=== PATIENT | female | born 1955 | race African-American/Black ===

== ENCOUNTER 2019-07-21 05:22 | Day surgery (SDC) | payer MEDICARE ==
[2019-07-14 09:28] LABS: ABSOLUTE EOSINOPHILS # (AUTO) 0.1 10^3/uL (0.0-0.6); ABSOLUTE LYMPHOCYTES (AUTO) 2.2 10^3/uL (0.5-4.7); ABSOLUTE MONOCYTES (AUTO) 0.6 10^3/uL (0.1-1.4); ABSOLUTE NEUT (AUTO) 5.1 10^3/uL (1.7-8.2); BASOPHILS % (AUTO) 0.6 % (0-2); EOSINOPHILS % (AUTO) 1.7 % (0-6); HEMATOCRIT 36.6 % (36.0-47.0); HEMOGLOBIN 12.1 g/dL (12.0-15.5); LYMPHOCYTES % (AUTO) 27.3 % (13-45); MEAN CORPUSCULAR HEMOGLOBIN 28.5 pg (27.0-33.4); MEAN CORPUSCULAR HGB CONC 33.1 g/dL (32.0-36.0); MEAN CORPUSCULAR VOLUME 86 fl (80-97); MONOCYTES % (AUTO) 7.1 % (3-13); PLATELET COUNT 325 10^3/uL (150-450); RED BLOOD COUNT 4.26 10^6/uL (3.72-5.28); RED CELL DISTRIBUTION WIDTH 14.2 % (11.5-14.0); SEGMENTED NEUTROPHILS % (AUTO) 63.3 % (42-78); TOTAL CELLS COUNTED % (AUTO) 100 %
[2019-07-14 09:56] LABS: ANION GAP 10 (5-19); BLOOD UREA NITROGEN 11 mg/dL (7-20); CALCIUM 9.4 mg/dL (8.4-10.2); CARBON DIOXIDE 27 mmol/L (22-30); CHLORIDE 103 mmol/L (98-107); GLUCOSE 119 mg/dL (75-110); POTASSIUM 3.6 mmol/L (3.6-5.0)
--- NOTE | 2019-07-14 14:06 | RADIOLOGY REPORT (SQ) ---
EXAM DESCRIPTION: CHEST PA/LATERAL COMPLETED DATE/TIME: 07/14/2019 9:22 am REASON FOR STUDY: PRE-OP COMPARISON: None. EXAM PARAMETERS: NUMBER OF VIEWS: two views TECHNIQUE: Digital Frontal and Lateral radiographic views of the chest acquired. RADIATION DOSE: NA LIMITATIONS: none FINDINGS: LUNGS AND PLEURA: No opacities, masses or pneumothorax. No pleural effusion. MEDIASTINUM AND HILAR STRUCTURES: No masses or contour abnormalities. HEART AND VASCULAR STRUCTURES: Heart normal size. No evidence for failure. BONES: No acute findings. HARDWARE: None in the chest. OTHER: No other significant finding. IMPRESSION: NO SIGNIFICANT RADIOGRAPHIC FINDING IN THE CHEST. TECHNICAL DOCUMENTATION: JOB ID: [id number] [employer]- All Rights Reserved Reading location - IP/workstation name: [email or web address]
--- NOTE | 2019-07-14 18:32 | EKG REPORT ---
SEVERITY:- ABNORMAL ECG - SINUS RHYTHM LVH WITH SECONDARY REPOLARIZATION ABNORMALITY : Confirmed by: Clementine Cline MD 14-Jul-2019 18:32:15
[~2019-07-21 05:22] MED LIST: CEFAZOLIN SODIUM 2 GM in DEXTROSE 5%-WATER 100 ML IV PRN; LACTATED RINGERS 1000 ML IV PRN; LIDOCAINE 0.5% INJ-PF (5 MG/ML) 50 ML SDV SUBCUT PRN
[2019-07-21 06:20] VITALS: BP 115/64
[2019-07-21] MEDS ORDERED: HYDROMORPHONE HCL INJ/PF 2 MG/ML AMPULE ONE (06:47)
[2019-07-21] MEDS ORDERED: ONDANSETRON HCL INJ/PF 4 MG/2 ML SDV ONE (06:47)
[2019-07-21] MEDS ORDERED: KETOROLAC TROMETHAMINE 60 MG/2 ML SDV ONE (06:47)
[2019-07-21] MEDS ORDERED: FENTANYL CITRATE INJ/PF 250 MCG/5 ML AMPULE ONE (06:47)
[2019-07-21] MEDS ORDERED: LIDOCAINE 2% INJ-PF (20 MG/ML) 10 ML AMPUL ONE (06:47)
[2019-07-21] MEDS ORDERED: DEXAMETHASONE SOD PHOSPHATE INJ 4 MG/1 ML VIAL ONE (06:48)
[2019-07-21] MEDS ORDERED: MIDAZOLAM 2 MG/2 ML INJ ONE ×2 (06:48→06:50)
[2019-07-21] MEDS ORDERED: PROPOFOL INJ 200 MG/20 ML VIAL IV ONE (06:48)
[2019-07-21] MEDS ORDERED: FENTANYL CITRATE INJ/PF 100 MCG/2 ML AMPUL ONE (06:52)
[2019-07-21] MEDS ORDERED: FENTANYL CITRATE INJ/PF 100 MCG/2 ML AMPUL IV ONE (07:00)
[2019-07-21] MEDS ORDERED: MIDAZOLAM 2 MG/2 ML INJ IV ONE (07:00)
[2019-07-21] MEDS ORDERED: EPHEDRINE SULFATE INJ 50 MG/1 ML AMPULE ONE (07:05)
== END 2019-07-21 08:45 | disposition home or self-care (01) ==
LOC: OROUT 05:22
PROVIDERS: ATTEND Orthopaedic Surgery
DX: M51.36 Other intervertebral disc degeneration, lumbar region (principal); Z79.899 Other long term (current) drug therapy; Z01.810 Encounter for preprocedural cardiovascular examination; Z01.811 Encounter for preprocedural respiratory examination; Z01.812 Encounter for preprocedural laboratory examination; R94.31 Abnormal electrocardiogram [ECG] [EKG]
CPT/HCPCS: 93005; 86900; 86901; 36415 ×2; 86850; 84132; 85025; 80048; 87070; 71046; 93010; J2250; J0690; J3010 ×2; J1170; J7060; J3490; J1100; J1885; J2405; J2704

== ENCOUNTER 2019-11-03 11:18 | Day surgery (SDC) | payer MEDICARE ==
[2019-10-29 10:42] LABS: ABSOLUTE BASOPHILS # (AUTO) 0.1 10^3/uL (0.0-0.2); ABSOLUTE EOSINOPHILS # (AUTO) 0.5 10^3/uL (0.0-0.6); ABSOLUTE LYMPHOCYTES (AUTO) 1.5 10^3/uL (0.5-4.7); ABSOLUTE MONOCYTES (AUTO) 0.6 10^3/uL (0.1-1.4); ABSOLUTE NEUT (AUTO) 6.1 10^3/uL (1.7-8.2); BASOPHILS % (AUTO) 0.8 % (0-2); EOSINOPHILS % (AUTO) 5.8 % (0-6); HEMATOCRIT 36.8 % (36.0-47.0); HEMOGLOBIN 12.2 g/dL (12.0-15.5); MEAN CORPUSCULAR HEMOGLOBIN 28.8 pg (27.0-33.4); MEAN CORPUSCULAR HGB CONC 33.2 g/dL (32.0-36.0); MEAN CORPUSCULAR VOLUME 87 fl (80-97); MONOCYTES % (AUTO) 6.7 % (3-13); PLATELET COUNT 289 10^3/uL (150-450); RED BLOOD COUNT 4.24 10^6/uL (3.72-5.28); RED CELL DISTRIBUTION WIDTH 14.3 % (11.5-14.0); SEGMENTED NEUTROPHILS % (AUTO) 69.7 % (42-78); TOTAL CELLS COUNTED % (AUTO) 100 %; WHITE BLOOD COUNT 8.7 10^3/uL (4.0-10.5)
--- NOTE | 2019-10-29 11:12 | RADIOLOGY REPORT (SQ) ---
EXAM DESCRIPTION: CHEST PA/LATERAL IMAGES COMPLETED DATE/TIME: 10/29/2019 10:35 am REASON FOR STUDY: PRE-OP COMPARISON: 08/25/2019 EXAM PARAMETERS: NUMBER OF VIEWS: two views TECHNIQUE: Digital Frontal and Lateral radiographic views of the chest acquired. RADIATION DOSE: NA LIMITATIONS: none FINDINGS: LUNGS AND PLEURA: No opacities, masses or pneumothorax. No pleural effusion. MEDIASTINUM AND HILAR STRUCTURES: No masses or contour abnormalities. HEART AND VASCULAR STRUCTURES: Heart normal size. No evidence for failure. BONES: No acute findings. HARDWARE: None in the chest. OTHER: No other significant finding. IMPRESSION: NO SIGNIFICANT RADIOGRAPHIC FINDING IN THE CHEST. TECHNICAL DOCUMENTATION: JOB ID: [id number] 2010 [employer]- All Rights Reserved Reading location - IP/workstation name: [email or web address]
[2019-10-29 11:14] LABS: ANION GAP 11 (5-19); BLOOD UREA NITROGEN 14 mg/dL (7-20); CARBON DIOXIDE 26 mmol/L (22-30); CHLORIDE 102 mmol/L (98-107); GLUCOSE 136 mg/dL (75-110); POTASSIUM 4.7 mmol/L (3.6-5.0)
--- NOTE | 2019-10-29 18:48 | EKG REPORT ---
SEVERITY:- ABNORMAL ECG - SINUS RHYTHM ABNORMAL T, CONSIDER ISCHEMIA, LATERAL LEADS : Confirmed by: Clementine Cline MD 29-Oct-2019 18:47:47
[~2019-11-03 11:18] MED LIST changes: +ACETAMINOPHEN 325 MG TABLET PO PRN; +BACITRACIN INJ 50,000 UNIT VIAL ONE; +BUPIVACAINE HCL 0.5 % INJ/PF 30 ML SDV ONE; +BUPIVACAINE INJ/PF LIPOSOME/PF 266 MG/20 ML SDV ONE; +CEFAZOLIN 1 GM/D5W RTU 0 GM/0 ML RTUPB IV ONE; +CEFAZOLIN INJ 1 GM VIAL ONE; +DEXAMETHASONE SOD PHOSPHATE INJ 4 MG/1 ML VIAL ONE; +DIAZEPAM 5 MG TABLET PO PRN; +DIPHENHYDRAMINE HCL 25 MG CAPSULE PO PRN; +DIPHENHYDRAMINE HCL 50 MG/ML VIAL IV PRN; +FENTANYL CITRATE INJ/PF 100 MCG/2 ML AMPUL IV PRN; +FENTANYL CITRATE INJ/PF 100 MCG/2 ML AMPUL ONE; +HEPARIN SOD (PORCINE) 1,000 UNIT/ML 10 ML VIAL ONE; +HYDROMORPHONE HCL INJ/PF 2 MG/ML AMPULE ONE; +KETOROLAC TROMETHAMINE 60 MG/2 ML SDV ONE; +LIDOCAINE 2% INJ-PF (20 MG/ML) 10 ML AMPUL ONE; +MEPERIDINE HCL/PF INJ 25 MG/1 ML DISP.SYRIN IV PRN; +METHOCARBAMOL INJ/PF 1000 MG/10 ML SDV ONE; +MIDAZOLAM 2 MG/2 ML INJ ONE; +MINERAL OIL (STERILE) 10 ML VIAL ONE; +MORPHINE SULFATE 10 MG/ML INJ IM PRN; +MORPHINE SULFATE 10 MG/ML INJ IV PRN; +ONDANSETRON HCL INJ/PF 4 MG/2 ML SDV IV PRN; +ONDANSETRON HCL INJ/PF 4 MG/2 ML SDV ONE; +OXYCODONE-ACETAMINOPHEN 5-325 MG TABLET PO PRN; +PHENYLEPHRINE HCL INJ/PF 10 MG/1 ML SDV ONE; +PROMETHAZINE HCL 25 MG TABLET PO PRN; +PROMETHAZINE HCL INJ 25 MG/1 ML VIAL IV PRN; +PROPOFOL 1,000 MG/100 ML INFUS..BTL IV ONE; +PROPOFOL INJ 200 MG/20 ML VIAL IV ONE
--- NOTE | 2019-11-03 11:30 | Operative Report ---
Operative Report DATE OF SURGERY: 11/03/19 Operative Report: Patient is brought into the room placed under general anesthesia received 2 g of Ancef within 1 hour of cut time was placed on the Roosevelt table medial epicondyles and axillary areas are well-padded. Neuro monitoring leads for SSEP and cranial motor testing are placed on the patient as well as a Ortega catheter is placed preoperatively. After appropriate surgical timeout the SofGenie robot is utilized and on the right posterior superior iliac spine a pin is placed and attached to the robot. After obtaining registration imaging in the AP and oblique position and verification 6.5 x 45 mm screws at L4 and 5.5 x 50 mm screws at L5 as well as a 6.5 x 40 mm screws at S1 are inserted using portal incisions on the right and the left at L4 and L5 and S1 bilaterally. Left iliac crest is aspirated at 2 different sites total of 50 cc of bone marrow aspirate are obtained and concentrated to be used an interbody spacer with the allograft. Attention was then paid to the left sided anterior lateral portal for entry into the disc space which is carried out under navigation guidance upon verification also with x-rays and then stimulation thresholds greater than 22mA. Upon inserting the portal into the disc space at L4-5 and L5-S1 fluoroscopy was used to verify the position as it did also to verify the screws position. Endplate tiffanie and curettes and brushes are used to carry out a complete discectomy then the verify balloon is inserted to verify good contact with the endplates. Incite cortical fibers/demineralized bone matrix with bone marrow aspirate concentrate are placed anterior in the disc space then the appropriate size mesh spacer is introduced into the interbody. The mesh spacer is soaked in bone marrow aspirate concentrate and is filled with bone graft showing good correction and good containment within the disc space at L4-5 and L5-S1. Upon neuro monitoring testing and cranial motor testing found to be stable then the portal is removed anterior laterally and attention is then paid to the placement of the rods upon using the caliper device the appropriate length rods were determined to be 40 mm rods on the right and on the left those are passed down and locked into position and final tightened. Then the tabs are removed and the portals are irrigated with copious amounts of irrigation and the posterior superior iliac spine pin connected to the robot is removed as well and the deep and superficial tissues were infiltrated with 1.3% Exparel 20 cc mixed with 20 cc of 0.5% bupivacaine plain. The portals are closed using 2-0 Vicryl and then Dermabond and Steri-Strips then 4 x 4's were used to cover the wounds on the right and the left and dressed with coverall tape. Please note that this procedure could not be done without the assistance of Canelo Hebert working to assist with the placement of the screws positioning of the robot carrying out the aspiration through the left side iliac crest aspiration please also note that the iliac crest aspiration is carried out on the left side through a separate incision. Canelo Hebert was instrumental throughout this whole process and I could not have done this procedure without his assistance as mentioned above. Hardware utilized is the Solera Voyager system from [employer] 6.5 x 45 mm screws x2 at L4 5.5 x 50 mm screws x2 at L5 6.5 x 40 mm screws x2 at S1 85 mm rods were utilized on the right and the left. The spineology 22 mm mesh spacers are inserted at L4-5 and L5-S1 as well as allograft BMP PREOPERATIVE DIAGNOSIS: L4-5 spondylolisthesis and stenosis. L5-S1 spinal listhesis and stenosis. Back pain. degenerative disc disease L4-5 and L5-S1. Radiculitis L4-5 and L5-S1 POSTOPERATIVE DIAGNOSIS: L4-5 spondylolisthesis and stenosis. L5-S1 spinal listhesis and stenosis. Back pain. degenerative disc disease L4-5 and L5-S1. Radiculitis L4-5 and L5-S1. Status post L4-5 and L5-S1 robotically assisted lumbar fusion with interbody spacers placed anterior laterally as well as iliac crest aspiration and bone marrow concentration to be used and interbody spacers. OPERATION: L5 S1 and L4-5 anterior lateral interbody fusion as well as L4-5 and L5-S1 posterior fusion with instrumentation robotically assisted left iliac crest aspiration for bone marrow aspirate for concentration to be used and interbody spacers. To her body spacer placement L4-5 and L5-S1 SURGEON: ALICIA MERAZ 1ST SUPERVISOR PLATE FORMING: LLOYD FELIPE ANESTHESIA: GA ESTIMATED BLOOD LOSS: 125 cc PROCEDURE: Patient is brought into the room placed under general anesthesia received 2 g of Ancef within 1 hour of cut time was placed on the Roosevelt table medial epicondyles and axillary areas are well-padded. Neuro monitoring leads for SSEP and cranial motor testing are placed on the patient as well as a Ortega catheter is placed preoperatively. After appropriate surgical timeout the SofGenie robot is utilized and on the right posterior superior iliac spine a pin is placed and attached to the robot. After obtaining registration imaging in the AP and oblique position and verification 6.5 x 45 mm screws at L4 and 5.5 x 50 mm screws at L5 as well as a 6.5 x 40 mm screws at S1 are inserted using portal incisions on the right and the left at L4 and L5 and S1 bilaterally. Left iliac crest is aspirated at 2 different sites total of 50 cc of bone marrow aspirate are obtained and concentrated to be used an interbody spacer with the allograft. Attention was then paid to the left sided anterior lateral portal for entry into the disc space which is carried out under navigation guidance upon verification also with x-rays and then stimulation thresholds greater than 22mA. Upon inserting the portal into the disc space at L4-5 and L5-S1 fluoroscopy was used to verify the position as it did also to verify the screws position. Endplate tiffanie and curettes and brushes are used to carry out a complete discectomy then the verify balloon is inserted to verify good contact with the endplates. Incite cortical fibers/demineralized bone matrix with bone marrow aspirate concentrate are placed anterior in the disc space then the appropriate size mesh spacer is introduced into the interbody. The mesh spacer is soaked in bone marrow aspirate concentrate and is filled with bone graft showing good correction and good containment within the disc space at L4-5 and L5-S1. Upon neuro monitoring testing and cranial motor testing found to be stable then the portal is removed anterior laterally and attention is then paid to the placement of the rods upon using the caliper device the appropriate length rods were determined to be 40 mm rods on the right and on the left those are passed down and locked into position and final tightened. Then the tabs are removed and the portals are irrigated with copious amounts of irrigation and the posterior superior iliac spine pin connected to the robot is removed as well and the deep and superficial tissues were infiltrated with 1.3% Exparel 20 cc mixed with 20 cc of 0.5% bupivacaine plain. The portals are closed using 2-0 Vicryl and then Dermabond and Steri-Strips then 4 x 4's were used to cover the wounds on the right and the left and dressed with coverall tape. Please note that this procedure could not be done without the assistance of Canelo Hebert working to assist with the placement of the screws positioning of the robot carrying out the aspiration through the left side iliac crest aspiration please also note th at the iliac crest aspiration is carried out on the left side through a separate incision. Canelo Hebert was instrumental throughout this whole process and I could not have done this procedure without his assistance as mentioned above. Hardware utilized is the Solera Voyager system from [employer] 6.5 x 45 mm screws x2 at L4 5.5 x 50 mm screws x2 at L5 6.5 x 40 mm screws x2 at S1 85 mm rods were utilized on the right and the left. The spineology 22 mm mesh spacers are inserted at L4-5 and L5-S1 as well as allograft BMP
[2019-11-03] MEDS ORDERED: METHOCARBAMOL INJ/PF 1000 MG/10 ML SDV IV PRN (12:11)
--- NOTE | 2019-11-03 13:28 | RADIOLOGY REPORT (SQ) ---
EXAM DESCRIPTION: L SPINE 2 VIEWS IMAGES COMPLETED DATE/TIME: 11/03/2019 12:52 pm REASON FOR STUDY: LUMBAR FUSION ASSISTED WITH FLUORO IN OR M51.36 OTHER INTERVERTEBRAL DISC DEGENER ATION, LUMBAR REGION M43.16 SPONDYLOLISTHESIS, LUMBAR REGION COMPARISON: None. FLUOROSCOPY TIME: 2.3 minutes. 3 images submitted to PACS. TECHNIQUE: Intraoperative fluoroscopic images of the lumbar spine were obtained during placement of bilateral transpedicular screws interconnected via vertical rods at L4, L5 and S1. LIMITATIONS: None. FINDINGS: Refer to the operative report. IMPRESSION: IMAGE(S) OBTAINED DURING PROCEDURE. COMMENT: Quality ID [id number]: Final reports for procedures using fluoroscopy that document radiation exp osure indices, or exposure time and number of fluorographic images (if radiation exposure indices are not available) Please consult full operative report of the attending physician for description of the procedure. TECHNICAL DOCUMENTATION: JOB ID: [id number] 2010 [employer]- All Rights Reserved Reading location - IP/workstation name: [email or web address]
[2019-11-03] MEDS: OXYCODONE-ACETAMINOPHEN 5-325 MG TABLET PO PRN ×2 (13:43→23:36)
--- NOTE | 2019-11-03 14:19 | RADIOLOGY REPORT (SQ) ---
EXAM DESCRIPTION: NO G FLUORO IMAGES COMPLETED DATE/TIME: 11/03/2019 12:52 pm REASON FOR STUDY: LUMBAR FUSION ASSISTED WITH FLUORO IN OR M51.36 OTHER INTERVERTEBRAL DISC DEGENER ATION, LUMBAR REGION M43.16 SPONDYLOLISTHESIS, LUMBAR REGION COMPARISON: None. FLUOROSCOPY TIME: 2.3 minutes. 3 images submitted to PACS. TECHNIQUE: Intraoperative fluoroscopic images of the lumbar spine were obtained during placement of bilateral transpedicular screws interconnected via vertical rods at L4, L5 and S1. LIMITATIONS: None. FINDINGS: Refer to the operative report. IMPRESSION: IMAGE(S) OBTAINED DURING PROCEDURE. COMMENT: Quality ID [id number]: Final reports for procedures using fluoroscopy that document radiation exp osure indices, or exposure time and number of fluorographic images (if radiation exposure indices are not available) Please consult full operative report of the attending physician for description of the procedure. TECHNICAL DOCUMENTATION: JOB ID: [id number] 2010 [employer]- All Rights Reserved Reading location - IP/workstation name: [email or web address]
[2019-11-03] MEDS ORDERED: CEFAZOLIN 2 GM/D5W RTU 2 GM/50 ML RTUPB IV SCH (14:30)
[2019-11-03] MEDS: GABAPENTIN 300 MG CAPSULE PO SCH ×2 (15:29→21:57)
[2019-11-03] MEDS: CEFAZOLIN SODIUM 2 GM in DEXTROSE 5%-WATER 100 ML IV SCH ×2 (15:30→21:58)
[2019-11-03] MEDS: POTASSIUM CHLORIDE 10 MEQ TABLET.ER PO SCH (17:35)
[2019-11-03] MEDS: FAMOTIDINE 20 MG TABLET PO SCH (17:35)
[2019-11-03] MEDS: SENNOSIDES/DOCUSATE 8.6-50 MG 1 EACH TABLET PO SCH (17:35)
[2019-11-03] MEDS ORDERED: (PENDING PHARMACY ID) (Lisinopril/Hydrochlorothiazide [Lisinopril-Hctz 10-12.5 Mg Tab] 1 T PO SCH (18:00)
[2019-11-03] MEDS ORDERED: (PENDING PHARMACY ID) (Potassium Chloride [Potassium Chloride] 10 MEQ) PO SCH (18:00)
[2019-11-03] MEDS: HYDROCHLOROTHIAZIDE 12.5 MG TABLET PO SCH (21:57)
[2019-11-03] MEDS: LISINOPRIL 10 MG TABLET PO SCH (21:58)
[2019-11-03] MEDS: RINGERS SOLUTION,LACTATED 1,000 ML IV PRN (23:37)
[2019-11-04] MEDS: GABAPENTIN 300 MG CAPSULE PO SCH ×3 (05:18→21:43)
[2019-11-04] MEDS: RINGERS SOLUTION,LACTATED 1,000 ML IV PRN (05:18)
[2019-11-04] MEDS: OXYCODONE-ACETAMINOPHEN 5-325 MG TABLET PO PRN ×3 (08:17→19:48)
--- NOTE | 2019-11-04 08:30 | PDOC PROGRESS REPORT ---
Subjective Progress Note for:: 11/04/19 Subjective:: Status post two-level lumbar fusion. She is laying in bed at time of examination, complains of pain. She reports she is eating well drinking well. She currently has a Ortega catheter in which is being removed. She was able to get up with physical therapy yesterday and ambulate. Reason For Visit: M51.36 OTHER INTERVERTEBRAL DISC DEGENERATION, LUM Physical Exam Vital Signs: Temp Pulse Resp BP Pulse Ox 98.7 F 103 H 16 168/72 H 97 11/04/19 07:57 11/04/19 07:57 11/04/19 07:57 11/04/19 07:57 11/04/19 07:57 Intake & Output 11/03/19 11/04/19 11/05/19 06:59 06:59 06:59 Intake Total 4264 200 Output Total 2490 Balance 1774 200 Weight 86.18 kg 86 kg General appearance: PRESENT: no acute distress, cooperative Head exam: PRESENT: atraumatic Musculoskeletal exam: PRESENT: other - Dressing was examined there is minor bloody drainage over the right side of the dressing. Moves her feet without apparent difficulty 2+ dorsalis pedis pulse normal sensation to bilateral lower extremities Psychiatric exam: PRESENT: appropriate affect. ABSENT: agitated, anxious Skin exam: PRESENT: dry, intact, normal color Results Laboratory Results: 10/29/19 10:00 11/03/19 06:37 Impressions: Chest X-Ray 10/29/19 10:14 IMPRESSION: NO SIGNIFICANT RADIOGRAPHIC FINDING IN THE CHEST. Fluoroscopy 11/03/19 00:00 IMPRESSION: IMAGE(S) OBTAINED DURING PROCEDURE. Lumbar Spine X-Ray 11/03/19 00:00 IMPRESSION: IMAGE(S) OBTAINED DURING PROCEDURE. Assessment & Plan - Diagnosis (1) Lumbar radiculopathy Is this a current diagnosis for this admission?: Yes (2) Spondylolisthesis of lumbosacral region Is this a current diagnosis for this admission?: Yes - Time Time Spent with patient: Less than 15 minutes - Plan Summary Plan Summary: Continue to progress with physical therapy per lumbar spine protocol. Consider discharge home tomorrow if pain is adequately controlled Nursing to reinforce dressing on right hand side Follow-up in Ortho clinic in 7 to 10 days
[2019-11-04] MEDS: HYDROCHLOROTHIAZIDE 12.5 MG TABLET PO SCH ×2 (09:18→21:41)
[2019-11-04] MEDS: ASPIRIN 81 MG TABLET, CHEWABLE PO SCH (09:19)
[2019-11-04] MEDS: LISINOPRIL 10 MG TABLET PO SCH ×2 (09:19→21:43)
[2019-11-04] MEDS: SENNOSIDES/DOCUSATE 8.6-50 MG 1 EACH TABLET PO SCH ×2 (09:19→17:23)
[2019-11-04] MEDS: FAMOTIDINE 20 MG TABLET PO SCH ×2 (09:19→17:24)
[2019-11-04] MEDS: METHOCARBAMOL 750 MG TABLET PO PRN ×2 (09:19→17:24)
[2019-11-04] MEDS: AMLODIPINE BESYLATE 5 MG TABLET PO SCH (09:19)
[2019-11-04] MEDS: POTASSIUM CHLORIDE 10 MEQ TABLET.ER PO SCH ×2 (09:20→17:23)
[2019-11-04] MEDS: PANTOPRAZOLE SODIUM 20 MG TABLET.DR PO SCH (09:22)
[2019-11-04] MEDS ORDERED: (PENDING PHARMACY ID) (Esomeprazole Magnesium [Nexium] 20 MG) PO SCH (10:00)
[2019-11-04] MEDS: HYDROCODONE/ACETAMINOPHEN 5-325 MG TABLET PO PRN ×3 (11:24→21:40)
[2019-11-04] MEDS ORDERED: METOPROLOL TARTRATE PF/INJ 5 MG/5 ML SDV IV ONE (23:17)
[2019-11-04] MEDS: METOPROLOL TARTRATE PF/INJ 5 MG/5 ML SDV IV SCH ×3 (23:21→23:39)
[2019-11-04] MEDS ORDERED: LORAZEPAM INJ 2 MG/1 ML VIAL IV PRN (23:51)
[2019-11-04] MEDS ORDERED: HYDROMORPHONE HCL INJ/PF 2 MG/ML AMPULE IV PRN (23:51)
--- NOTE | 2019-11-04 23:51 | PDOC CONSULTATION ---
Consultation Consult Date: 11/04/19 Attending physician:: ALICIA MERAZ Provider Consulted: CHEIKH SIDHU Consult reason:: Malignant hypertension History of Present Illness Admission Date/PCP: 11/03/19 05:43 ANABEL PRATER DO Patient complains of: Back pain History of Present Illness: LIZA TAYLOR is a 64 year old female who was seen in consultation at the request of her neurosurgical care team. Patient was reported to have a systolic blood pressure in the 180-200 range and hospitalist team was requested to see the patient in evaluation and treat her hypertension. Patient admits that she has a history of hypertension and has been receiving her usual home antihyper tensives. She further admits that she is having a great deal of pain in the surgical site in her lower back and the pain has begun to radiate down her leg on the left side. She rates the pain at a 5 out of 5 and appears to be in moderate to severe discomfort. She had a lumbar fusion surgery performed yesterday. Past Medical History Cardiac Medical History: Reports: Hypertension, Heart Murmur Denies: Atrial Fibrillation, Congestive Heart Failure, Coronary Artery Disease, Myocardial Infarction, Hyperlipidema, Peripheral Vascular Disease Pulmonary Medical History: Denies: Asthma, Chronic Obstructive Pulmonary Disease (COPD) EENT Medical History: Reports: Eyes - Left eye injury with lens implant Denies: Cataracts, Ears - Hearing aids Neurological Medical History: Denies: Hemorrhagic CVA, Ischemic CVA Endocrine Medical History: Reports: Obesity Denies: Diabetes Mellitus Type 1, Diabetes Mellitus Type 2, Hyperthyroidism, Hypothyroidism Renal/ Medical History: Denies: Chronic Kidney Disease, Nephrolithiasis Malignancy Medical History: Reports: None GI Medical History: Reports: Gastroesophageal Reflux Disease - REFLUX Denies: Cirrhosis, Crohn's Disease, Hepatitis, Hiatal Hernia, Peptic Ulcer Disease, Ulcerative Colitis Musculoskeltal Medical History: Reports: Arthritis Denies: Fibromyalgia, Gout Skin Medical History: Denies: Eczema, Psoriasis Psychiatric Medical History: Denies: Alcohol Dependency, Substance Abuse, Tobacco Dependency Traumatic Medical History: Reports: None Hematology: Reports: Anemia Denies: Bleeding Tendencies Infectious Medical History: Reports: None Past Surgical History Past Surgical History: Reports: Cholecystectomy - LAP, Hysterectomy, Orthopedic Surgery - Right rotator cuff repair, Tubal Ligation, Other - Cervical spine surgery, lens replacement OD status post traumatic injury Social History Information Source: Patient Lives with: Spouse/Significant other Smoking Status: Former Smoker Electronic Cigarette use?: No Frequency of Alcohol Use: None Hx Recreational Drug Use: No Drugs: None Hx Prescription Drug Abuse: No - Advance Directive Resuscitation Status: Full Code Surrogate healthcare decision maker:: Wallace Taylor Family History Family History: DM - Father, Hypertension - Numerous family members, Malignancy - Sister. denies: CAD Parental Family History Reviewed: Yes Children Family History Reviewed: No Sibling(s) Family History Reviewed.: Yes Medication/Allergy Home Medications: Amlodipine Besylate [Norvasc 5 mg Tablet] 5 mg PO DAILY 07/14/19 Aspirin 81 mg PO DAILY 07/14/19 Gabapentin 600 mg PO TID 07/14/19 Lisinopril/Hydrochlorothiazide [Lisinopril-Hctz 10-12.5 mg Tab] 1 tab PO BID 07/14/19 Esomeprazole Magnesium [Nexium] 20 mg PO DAILY 08/25/19 Potassium Chloride 10 meq PO BID 10/29/19 Tizanidine HCl 4 mg PO TID 10/29/19 Tramadol HCl [Ultram] 50 mg PO Q8 10/29/19 Allergies/Adverse Reactions: No Known Allergies Allergy (Verified 10/29/19 09:24) Review of Systems Constitutional: ABSENT: chills, fever(s) Eyes: ABSENT: visual disturbances, other - Eye pain Ears: ABSENT: hearing changes, other - Ear pain Nose, Mouth, and Throat: ABSENT: headache(s), sore throat Cardiovascular: ABSENT: chest pain, palpitations Respiratory: ABSENT: cough, dyspnea Gastrointestinal: ABSENT: abdominal pain, constipation, diarrhea, nausea, vomiting Genitourinary: ABSENT: dysuria, hematuria Musculoskeletal: PRESENT: as per HPI, back pain - Chronic. ABSENT: joint swelling Integumentary: ABSENT: pruritus, rash Neurological: ABSENT: confusion, convulsions, focal weakness, memory loss, syncope Endocrine: ABSENT: cold intolerance, heat intolerance, polydipsia, polyphagia, polyuria Hematologic/Lymphatic: ABSENT: easy bleeding, easy bruising Allergic/Immunologic: ABSENT: seasonal rhinorrhea Physical Exam Vital Signs: Temp Pulse Resp BP Pulse Ox 99.1 F 107 H 18 200/80 H 92 11/04/19 22:48 11/04/19 22:48 11/04/19 22:48 11/04/19 22:48 11/04/19 22:48 Intake & Output 11/02/19 11/03/19 11/04/19 23:59 23:59 23:59 Intake Total 3380 2264 Output Total 790 2400 Balance 2590 -136 Weight 86.18 kg 86 kg General appearance: PRESENT: obese, severe distress - Secondary to pain Head exam: PRESENT: atraumatic, normocephalic Eye exam: PRESENT: conjunctiva pink. ABSENT: conjunctival injection, scleral icterus Ear exam: PRESENT: normal external ear exam. ABSENT: bleeding, drainage Mouth exam: PRESENT: dry mucosa, neck supple Neck exam: ABSENT: thyromegaly, tracheal deviation Respiratory exam: PRESENT: clear to auscultation dipika, symmetrical, unlabored Cardiovascular exam: PRESENT: RRR, tachycardia. ABSENT: clicks, gallop, rubs Pulses: PRESENT: normal radial pulses, normal dorsalis pedis pul Vascular exam: PRESENT: normal capillary refill. ABSENT: pallor GI/Abdominal exam: PRESENT: normal bowel sounds, soft. ABSENT: tenderness Rectal exam: PRESENT: deferred Extremities exam: ABSENT: joint swelling, pedal edema Musculoskeletal exam: PRESENT: other - Pain with any movement of her back and hips.. ABSENT: deformity, dislocation Neurological exam: PRESENT: alert, oriented to person, oriented to place, oriented to time, oriented to situation, CN II-XII grossly intact. ABSENT: easton r sensory deficit Psychiatric exam: PRESENT: appropriate affect, normal mood Skin exam: PRESENT: dry, intact, warm. ABSENT: jaundice, rash, urticaria Results Laboratory Results: 10/29/19 10:00 11/03/19 06:37 Impressions: Chest X-Ray 10/29/19 10:14 IMPRESSION: NO SIGNIFICANT RADIOGRAPHIC FINDING IN THE CHEST. Fluoroscopy 11/03/19 00:00 IMPRESSION: IMAGE(S) OBTAINED DURING PROCEDURE. Lumbar Spine X-Ray 11/03/19 00:00 IMPRESSION: IMAGE(S) OBTAINED DURING PROCEDURE. Assessment and Plan - Diagnosis (1) Malignant essential hypertension Is this a current diagnosis for this admission?: Yes (2) Postoperative pain after spinal surgery Is this a current diagnosis for this admission?: Yes (3) Obesity Qualifiers: Obesity type: unspecified obesity type Serious obesity comorbidity presence: unspecified whether serious comorbidity present Body mass index: unspecified BMI Is this a current diagnosis for this admission?: Yes (4) Chronic back pain greater than 3 months duration Is this a current diagnosis for this admission?: Yes (5) Lumbar radiculopathy Is this a current diagnosis for this admission?: Yes (6) Spondylolisthesis of lumbosacral region Is this a current diagnosis for this admission?: Yes - Plan Summary Summary: Patient was treated with an urgent hypertensive regiment using metoprolol 5 mg IV every 5 minutes x3 doses followed by an oral dose of 100 mg of Lopressor x1. She will also be treated with a PRN antihypertensive regimen utilizing hydralazine 20 mg every 4 hours as needed for a systolic pressure greater than 160 and or a diastolic pressure greater than 100. Patient's pain is not being adequately treated and this may well be contributing to her hypertension. She will therefore be treated with Dilaudid 0.5 to 2 mg IV every 3 hours on an as- needed basis utilizing a sliding scale for dosing. She will receive Ativan 2 mg IV every 4 hours as needed for anxiety or restlessness. Patient's blood pressure was monitored closely throughout the remainder of the evening to assure adequate control. - Time Time Spent with patient: 15-24 minutes Medications reviewed and adjusted accordingly: Yes Anticipated discharge: Home
[2019-11-04] MEDS ORDERED: AMLODIPINE BESYLATE 5 MG TABLET PO SCH (23:58)
[2019-11-04] MEDS ORDERED: LISINOPRIL 10 MG TABLET PO SCH (23:58)
[2019-11-05] MEDS ORDERED: HYDROMORPHONE HCL INJ/PF 2 MG/ML AMPULE IV PRN ×4 (00:08→00:09)
[2019-11-05] MEDS ORDERED: METOPROLOL TARTRATE 100 MG TABLET PO ONE (00:10)
[2019-11-05] MEDS: HYDRALAZINE HCL INJ/PF 20 MG/1 ML SDV IV PRN ×2 (00:48→04:53)
[2019-11-05] MEDS ORDERED: BISACODYL 5 MG TABEC PO PRN (05:00)
[2019-11-05] MEDS: GABAPENTIN 300 MG CAPSULE PO SCH ×2 (08:39→13:13)
[2019-11-05 08:42] VITALS: BP 130/62
[2019-11-05] MEDS: PANTOPRAZOLE SODIUM 20 MG TABLET.DR PO SCH (09:46)
[2019-11-05] MEDS: HYDROCHLOROTHIAZIDE 12.5 MG TABLET PO SCH (09:47)
[2019-11-05] MEDS: POTASSIUM CHLORIDE 10 MEQ TABLET.ER PO SCH (09:48)
[2019-11-05] MEDS: SENNOSIDES/DOCUSATE 8.6-50 MG 1 EACH TABLET PO SCH (09:49)
[2019-11-05] MEDS: FAMOTIDINE 20 MG TABLET PO SCH (09:49)
[2019-11-05] MEDS: ASPIRIN 81 MG TABLET, CHEWABLE PO SCH (09:49)
[2019-11-05] MEDS: AMLODIPINE BESYLATE 5 MG TABLET PO SCH (09:58)
[2019-11-05] MEDS: OXYCODONE-ACETAMINOPHEN 5-325 MG TABLET PO PRN (10:49)
--- NOTE | 2019-11-05 11:07 | PDOC PROGRESS REPORT ---
Subjective Progress Note for:: 11/05/19 Subjective:: Patient is complaining of discomfort in the left leg. She states it started approximately 2 hours after her surgery. She does have analgesia available. With regard to her blood pressure it is much improved this morning. Reason For Visit: M51.36 OTHER INTERVERTEBRAL DISC DEGENERATION, LUM Physical Exam Vital Signs: Temp Pulse Resp BP Pulse Ox 98.3 F 66 17 130/62 H 96 11/05/19 08:25 11/05/19 08:25 11/05/19 08:25 11/05/19 08:41 11/05/19 08:25 Intake & Output 11/04/19 11/05/19 11/06/19 06:59 06:59 06:59 Intake Total 4264 2630 Output Total 2490 700 Balance 1774 1930 Weight 86 kg 89.5 kg General appearance: PRESENT: cooperative, mild distress, well-developed Respiratory exam: PRESENT: clear to auscultation dipika, symmetrical, unlabored. ABSENT: prolonged expiratory phas, rales, rhonchi, tachypnea, wheezes Cardiovascular exam: PRESENT: RRR, +S1, +S2, systolic murmur - 2/6 GI/Abdominal exam: PRESENT: normal bowel sounds, soft. ABSENT: distended, guarding, tenderness Rectal exam: PRESENT: deferred Neurological exam: PRESENT: alert, awake, oriented to person, oriented to place, oriented to time, oriented to situation, CN II-XII grossly intact. ABSENT: altered Psychiatric exam: PRESENT: flat affect. ABSENT: agitated, anxious Results Laboratory Results: 10/29/19 10:00 11/03/19 06:37 Impressions: Chest X-Ray 10/29/19 10:14 IMPRESSION: NO SIGNIFICANT RADIOGRAPHIC FINDING IN THE CHEST. Fluoroscopy 11/03/19 00:00 IMPRESSION: IMAGE(S) OBTAINED DURING PROCEDURE. Lumbar Spine X-Ray 11/03/19 00:00 IMPRESSION: IMAGE(S) OBTAINED DURING PROCEDURE. Assessment and Plan - Diagnosis (1) Malignant essential hypertension Is this a current diagnosis for this admission?: Yes Plan: 11/05/2019 Patient is back on her baseline medications. Blood pressure is improved. We will continue to monitor. We will adjust medications accordingly. (2) Postoperative pain after spinal surgery Is this a current diagnosis for this admission?: Yes Plan: 11/05/2019 Continue as needed analgesia (3) Obesity Qualifiers: Obesity type: unspecified obesity type Serious obesity comorbidity presence: unspecified whether serious comorbidity present Body mass index: BMI 37.0-37.9 Is this a current diagnosis for this admission?: Yes Plan: 11/05/2019 Consider aggressive dietary management. Once recovered from spinal surgery consider regular exercise program. - Plan Summary Summary: Patient was treated with an urgent hypertensive regiment using metoprolol 5 mg IV every 5 minutes x3 doses followed by an oral dose of 100 mg of Lopressor x1. She will also be treated with a PRN antihypertensive regimen utilizing hydralazine 20 mg every 4 hours as needed for a systolic pressure greater than 160 and or a diastolic pressure greater than 100. Patient's pain is not being adequately treated and this may well be contributing to her hypertension. She will therefore be treated with Dilaudid 0.5 to 2 mg IV every 3 hours on an as- needed basis utilizing a sliding scale for dosing. She will receive Ativan 2 mg IV every 4 hours as needed for anxiety or restlessness. Patient's blood pressure was monitored closely throughout the remainder of the evening to assure adequate control. - Time Time Spent with patient: Less than 15 minutes Medications reviewed and adjusted accordingly: Yes Anticipated discharge: Home
[2019-11-05] MEDS: METHOCARBAMOL 750 MG TABLET PO PRN (13:13)
== END 2019-11-05 14:00 | disposition home or self-care (01) ==
LOC: OROUT 11:18 → INOR 13:00 → 4S 13:00 → OROUT 11-05 14:00 → UNDODISIN 11-05 14:00
PROVIDERS: ATTEND Orthopaedic Surgery
DX: M51.36 Other intervertebral disc degeneration, lumbar region (principal); M43.16 Spondylolisthesis, lumbar region; M47.22 Other spondylosis with radiculopathy, cervical region; M43.10 Spondylolisthesis, site unspecified; R29.3 Abnormal posture; M54.2 Cervicalgia; M47.817 Spondylosis without myelopathy or radiculopathy, lumbosacral region; Z03.818 Encounter for observation for suspected exposure to other biological agents ruled out; I10 Essential (primary) hypertension; G89.18 Other acute postprocedural pain; G89.29 Other chronic pain; M54.9 Dorsalgia, unspecified; R01.1 Cardiac murmur, unspecified; E87.6 Hypokalemia; E66.9 Obesity, unspecified; K21.9 Gastro-esophageal reflux disease without esophagitis; D64.9 Anemia, unspecified; Z87.891 Personal history of nicotine dependence; Z79.899 Other long term (current) drug therapy; Z79.82 Long term (current) use of aspirin; Z79.891 Long term (current) use of opiate analgesic
CPT/HCPCS: 22558; 22585; 20939; 22853 ×2; 20930; 93005; 86900; 86901; 36415 ×2; 86850; 84132; 85025; 80048; 87070; 71046; 72100; 94799; 93010; 94760 ×2; 97530 ×3; 97110; 97116 ×2; 97162; 00630; U0003; A9270 ×32; J2250; J3490 ×8; J0690; J1100; J1885; J3010; J2704 ×2; J1644; J0360; J2800; J1170; J2370; J2405; J7060; J7120 ×2; C9290; 87635; C1898; Q9966